=== PATIENT | female | born 1965 | race Caucasian/White ===

== ENCOUNTER → 2017-12-10 | Day surgery (SDC) | payer OTHER ==
[~2017-12-10] MED LIST: BENZONATATE100 MG PO; FENTANYL CITRATE/PF 100MCG/2 ML INJ ONE; FLONASE; HYOSCYAMINE SULFATE 0.5 MG/ML AMP ONE; LEVOCETIRIZINE D5 MG PO; LIDOCAINE HCL 2% LOCAL INJ 5 ML SDV VIAL INJ ONE; LISINOPRIL-HCT1 EAC1 PO; MIDAZOLAM HCL 2 MG/2 ML VIAL ONE; PROPOFOL IV EMULSION 10 MG/ML 50 ML VIAL ONE
--- NOTE | 2017-12-10 13:25 | Operative Report ---
DATE OF PROCEDURE: December 10, 2017 REFERRING PHYSICIAN: Dr. Kody Guo. PROCEDURE PERFORMED: Esophagogastroduodenoscopy with biopsies and a colonoscopy with biopsies. INDICATIONS FOR ESOPHAGOGASTRODUODENOSCOPY: History of dark stools. INDICATIONS FOR COLONOSCOPY: Colorectal cancer screening. Personal history of colon polyps. History of intermittent loose stools. MEDICATION: Patient was done under MAC. Please see anesthesiologist's note. PROCEDURE: With patient in the left lateral decubitus position, flexible fiberoptic Olympus gastroscope was introduced into the esophagus under direct visualization without any difficulty. There was some patchy erythema noted in distal esophagus. The scope was then advanced with ease into the stomach. Mucosa overlying the antrum and the body revealed some patchy erythema and mild to moderate edema and biopsies were obtained and sent to stain for H. pylori. Pylorus appeared to be of normal contour and shape. Was intubated with ease and the scope was advanced all the way to the 2nd portion of the duodenum. Biopsies were obtained from the proximal 2nd portion to rule out sprue considering patient's history of loose stools. The scope was then withdrawn back into the stomach and retroflexed, and the mucosa overlying the fundus and the cardia appeared to be within normal limits. The scope was then straightened out. The stomach was decompressed. Scope was subsequently withdrawn. Patient tolerated the procedure well. IMPRESSION: 1. Mild distal esophagitis. 2. Gastritis biopsied. Biopsy sent stain for H. pylori. 3. Rule out sprue. PLAN: Follow up histology. Initiate Protonix 40 mg 1 p.o. q.a.m. a.c. PROCEDURE: Patient was then turned around and after adequate lubrication of the anal canal a flexible fiberoptic Olympus colonoscope was inserted into the rectum with ease and advanced all the way to the cecum. Mucosa overlying the cecum appeared to be within normal limits. The ileocecal valve was intubated and the scope was advanced into the terminal ileum. Biopsies were obtained. The scope was then withdrawn back into the colon. It was then withdrawn slowly and there was some patchy nodularity noted in the proximal ascending colon and biopsies were obtained. The rest of the ascending and transverse appeared to be within normal limits. There was some patchy mild inflammatory changes noted in the left colon. Random biopsies were obtained. The scope was then retroflexed into the distal rectum and small internal hemorrhoids were noted, none of which was actively bleeding. The scope was then straightened out. It was subsequently withdrawn after securing an adequate stool specimen that was sent for the appropriate stool studies. Patient tolerated the procedure well. IMPRESSION. 1. Patchy nodularity proximal ascending colon, biopsied. 2. Mild patchy left side colitis. 3. Internal hemorrhoids, none actively bleeding. PLAN: Follow up histology. Follow up stool stools. Initiate Bentyl 10 mg one p.o. t.i.d. Start VSL#3 DS one p.o. b.i.d. The patient will need a followup colonoscopy in 3 to 5 years. Job#: [id number] cc:KODY GUO M.D.
[2017-12-10 15:45] LABS: WBC,FECAL (FECAL LACTOFERRIN) NEGATIVE (NEGATIVE)
[2017-12-12 08:02] LABS: C DIFFICILE TOXIN A&B AMP PROB NEGATIVE (NEGATIVE)
== END | disposition home or self-care (01) ==
LOC: OR 08:20
PROVIDERS: ATTEND Internal Medicine Gastroenterology
DX: Z12.11 Encounter for screening for malignant neoplasm of colon (principal); K29.50 Unspecified chronic gastritis without bleeding; K51.50 Left sided colitis without complications; K20.9 Esophagitis, unspecified; K63.89 Other specified diseases of intestine; K64.8 Other hemorrhoids; G47.33 Obstructive sleep apnea (adult) (pediatric); I10 Essential (primary) hypertension; R00.1 Bradycardia, unspecified; Z88.5 Allergy status to narcotic agent; Z01.810 Encounter for preprocedural cardiovascular examination; Z68.41 Body mass index [BMI] 40.0-44.9, adult
CPT/HCPCS: 43239; 45380; 81025; 83630; 83993; 87045; 87177; 87328; 87493; 93005; J1980; J2001; J2250

== ENCOUNTER → 2022-11-05 | Day surgery (SDC) | payer BC ==
[2022-11-01 12:53] LABS: BASOPHILS % 0.5 % (0.0-1.0); EOSINOPHILS # (AUTO) 0.3 (0.0-0.4); EOSINOPHILS % 3.3 % (0.0-6.0); HEMATOCRIT 39.6 % (34.2-44.1); HEMOGLOBIN 12.8 g/dL (12.0-16.0); LYMPHOCYTES # (AUTO) 1.4 (1.0-3.2); LYMPHOCYTES % 18.2 % (18.0-39.1); MEAN CORPUSCULAR HEMOGLOBIN 25.4 pg (28-32); MEAN CORPUSCULAR HGB CONC 32.3 g/dL (31-35); MEAN CORPUSCULAR VOLUME 78.6 fL (81-99); MONOCYTES # (AUTO) 0.4 (0.2-0.8); MONOCYTES % 5.2 % (4.4-11.3); NEUTROPHILS # (AUTO) 5.5 (2.1-6.9); NEUTROPHILS % 72.3 % (38.7-80.0); PLATELET COUNT 294 x10e3/uL (140-360); RED BLOOD COUNT 5.04 x10e6/uL (3.6-5.1); RED CELL DISTRIBUTION WIDTH 14.7 % (11.7-14.4)
[2022-11-01 13:08] LABS: ANION GAP 14.3 mmol/L (8-16); CALCIUM 9.2 mg/dL (8.4-10.2); CREATININE, SERUM 0.76 mg/dL (0.57-1.11); POTASSIUM 3.3 mmol/L (3.5-5.1)
[~2022-11-05] MED LIST changes: +AZO STANDARD95 MG PO; +BYSTOLIC10 MG PO; +DEXAMETHASONE SOD PHOS INJ 4 MG/ML SDV ONE; -FLONASE; +FLONASE INH; +GENTAMICIN 80MG/NS 100 ML 200 ML IV ONE; -HYOSCYAMINE SULFATE 0.5 MG/ML AMP ONE; +KEFLEX125 MG/5 M PO; +KETOROLAC TROME10 MG PO; +LIDOCAINE HCL 2% JELLY 5 ML TUBE ONE; +LOSARTAN-HCTZ1 EACH PO; +METHOCARBAMOL750 MG PO; +ONDANSETRON HCL INJ 2MG/ML 2ML 2 MG/ML VIAL ONE; +POVIDONE IODINE 0.05% 0.05 % ML PO ONE; +PROPOFOL IV EMULSION 10 MG/ML 20 ML VIAL ONE; -PROPOFOL IV EMULSION 10 MG/ML 50 ML VIAL ONE; +SEVOFLURANE INHAL SOLN 250 ML PEN BTL ONE; +TYLENOL EXTRA500 MG PO; +VESICARE10 MG PO
[2022-11-05 14:40] VITALS: BP 156/80
== END | disposition home or self-care (01) ==
LOC: OR 09:42
PROVIDERS: ATTEND Urology
DX: N20.0 Calculus of kidney (principal); G47.33 Obstructive sleep apnea (adult) (pediatric); I10 Essential (primary) hypertension; Z88.6 Allergy status to analgesic agent; Z88.0 Allergy status to penicillin; Z88.8 Allergy status to other drugs, medicaments and biological substances; Z46.6 Encounter for fitting and adjustment of urinary device; N28.89 Other specified disorders of kidney and ureter; Z01.812 Encounter for preprocedural laboratory examination; Z01.818 Encounter for other preprocedural examination; Z79.899 Other long term (current) drug therapy
CPT/HCPCS: 36415; 52351; 74018; 74420; 80048; 81025; 85025; 87086; 87186; J1100; J1580; J2001 ×2; J2250; J2405; J2704; J3010

== ENCOUNTER 2022-12-13 16:00 | Emergency (ER) | payer BC ==
[~2022-12-13] VITALS: Ht 154.9 cm; Wt 108.9 kg
[~2022-12-13 16:00] MED LIST changes: -DEXAMETHASONE SOD PHOS INJ 4 MG/ML SDV ONE; -FENTANYL CITRATE/PF 100MCG/2 ML INJ ONE; -GENTAMICIN 80MG/NS 100 ML 200 ML IV ONE; -KETOROLAC TROME10 MG PO; -LIDOCAINE HCL 2% JELLY 5 ML TUBE ONE; -LIDOCAINE HCL 2% LOCAL INJ 5 ML SDV VIAL INJ ONE; -METHOCARBAMOL750 MG PO; -MIDAZOLAM HCL 2 MG/2 ML VIAL ONE; -ONDANSETRON HCL INJ 2MG/ML 2ML 2 MG/ML VIAL ONE; -POVIDONE IODINE 0.05% 0.05 % ML PO ONE; -PROPOFOL IV EMULSION 10 MG/ML 20 ML VIAL ONE; -SEVOFLURANE INHAL SOLN 250 ML PEN BTL ONE
[2022-12-13] MEDS ORDERED: METHOCARBAMOL 750 MG TAB PO ONE (16:45)
[2022-12-13] MEDS ORDERED: TRAMADOL HCL 50 MG TAB PO ONE (16:45)
[2022-12-13] MEDS ORDERED: METHOCARBAMOL750 MG PO (17:07)
[2022-12-13] MEDS ORDERED: KETOROLAC TROME10 MG PO (17:07)
[2022-12-13] MEDS ORDERED: KETOROLAC TROMETHAMINE 30 MG/ML VIAL IV ONE (17:30)
== END 2022-12-13 17:15 | disposition home or self-care (01) ==
LOC: ER 16:06
DX: M62.830 Muscle spasm of back (principal); I10 Essential (primary) hypertension; Z87.442 Personal history of urinary calculi
CPT/HCPCS: 99282; J1885